=== PATIENT | male | born 2000 | race Caucasian/White ===

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

== ENCOUNTER 2018-07-15 19:20 | Emergency (ER) | payer OTHER ==
[2018-07-15 19:23] VITALS: BP 159/81; PULSE 101; RESP 16; TEMP 98.6
[2018-07-15] MEDS ORDERED: LIDOCAINE 1% INJ 10MG/ML (20 ML MDV) SQ ONE (19:28)
[2018-07-15] MEDS ORDERED: ACET/COD 300 MG/30 MG STARTER PACK 6 TAB BTL PO STA (19:32)
--- NOTE | 2018-07-15 19:33 | ED ---
Skin/Abscess/FB HPI - General Chief complaint: Skin/Abscess/Foreign Body Stated complaint: Cyst on tailbone Time Seen by Provider: 07/15/18 19:24 Source: patient, RN notes reviewed Mode of arrival: ambulatory Limitations: no limitations - History of Present Illness Initial comments: 17-year-old male present emergency department with chief complaint abscess on his tailbone. Patient states has been present for last 6 days. Patient states it has become too painful to tolerate. Patient reports no fevers or chills. Patient has had multiple of these in the past and has seen a surgeon for told that he just needs to lose weight. Patient denies any other complaints at this time. - Related Data Previous Rx's Medication Instructions Recorded Clindamycin [Cleocin] 450 mg PO TID 10 Days capsule 10/26/17 Clindamycin HCl 300 mg PO Q6HR #40 cap 07/15/18 Allergies Allergy/AdvReac Type Severity Reaction Status Date / Time bee pollen Allergy Swelling Verified 07/15/18 19:23 sulfamethoxazole Allergy Rash/Hives Verified 07/15/18 19:23 [From Bactrim] trimethoprim [From Bactrim] Allergy Rash/Hives Verified 07/15/18 19:23 venom-honey bee Allergy Anaphylaxis Verified 07/15/18 19:23 diphenhydramine AdvReac Confusion Verified 07/15/18 19:23 [From Benadryl] Review of Systems ROS Statement: Those systems with pertinent positive or pertinent negative responses have been documented in the HPI. ROS Other: All systems not noted in ROS Statement are negative. Past Medical History Past Medical History: No Reported History History of Any Multi-Drug Resistant Organisms: None Reported Past Surgical History: No Surgical Hx Reported Additional Past Surgical History / Comment(s): pilonidal cyst Past Psychological History: No Psychological Hx Reported Smoking Status: Never smoker Past Alcohol Use History: None Reported Past Drug Use History: None Reported General Exam Limitations: no limitations General appearance: alert, in no apparent distress Head exam: Present: atraumatic, normocephalic, normal inspection Respiratory exam: Present: normal lung sounds bilaterally. Absent: respiratory distress, wheezes, rales, rhonchi, stridor Cardiovascular Exam: Present: regular rate, normal rhythm, normal heart sounds. Absent: systolic murmur, diastolic murmur, rubs, gallop, clicks GI/Abdominal exam: Present: soft, normal bowel sounds. Absent: distended, tenderness, guarding, rebound, rigid Skin exam: Present: warm, dry, intact, normal color, other (At the cleft of the buttocks there is 2 cm abscess per minute and the right. Mild fluctuant mild erythema). Absent: rash Course Vital Signs 07/15/18 19:21 Temperature 98.6 F Pulse Rate 101 H Respiratory 16 Rate Blood Pressure 159/81 O2 Sat by Pulse 98 Oximetry Procedures - Incision & Drainage Consent Obtained: verbal consent Site: buttock (Abscess) Size (cm): 2 Anesthetic Used: lidocaine 1%, without epi Amount (mLs): 8 I&D Cleaning Method: Chloroprep Scalpel Used: #11 I&D Drainage Obtained: Pus, Blood Culture Obtained?: No Patient Tolerated Procedure: well, no complications Medical Decision Making - Medical Decision Making 17-year-old male presented for an abscess to his buttocks region. This was opened. Patient will be discharged on clindamycin. Patient will follow-up PCP and return for any worsening symptoms. Disposition Clinical Impression: Abscess of buttock Disposition: HOME SELF-CARE Condition: Stable Instructions (If sedation given, give patient instructions): Abscess Incision and Drainage (ED), Abscess (ED) Additional Instructions: Please return to the Emergency Department if symptoms worsen or any other concerns. Prescriptions: Clindamycin HCl 300 mg PO Q6HR #40 cap Is patient prescribed a controlled substance at d/c from ED?: No Referrals: Wojciech Reyna MD [Primary Care Provider] - 1-2 days Time of Disposition: 19:32
== END 2018-07-15 19:58 | disposition home or self-care (01) ==
LOC: EC 19:20
DX: L02.31 Cutaneous abscess of buttock (principal); Z88.1 Allergy status to other antibiotic agents; Z88.2 Allergy status to sulfonamides; Z88.8 Allergy status to other drugs, medicaments and biological substances; Z91.030 Bee allergy status
CPT/HCPCS: 99282; 10060; J2001

== ENCOUNTER 2018-12-17 10:01 | Emergency (ER) | payer OTHER ==
[2018-12-17 10:15] VITALS: BP 145/85; PULSE 91; RESP 16; TEMP 98.1
[2018-12-17] MEDS ORDERED: LIDOCAINE 1% INJ 10MG/ML (20 ML MDV) SQ ONE (10:26)
--- NOTE | 2018-12-17 10:33 | ED ---
Skin/Abscess/FB HPI - General Chief complaint: Skin/Abscess/Foreign Body Stated complaint: cyst on tailbone Time Seen by Provider: 12/17/18 10:17 Source: patient Mode of arrival: ambulatory Limitations: no limitations - History of Present Illness Initial comments: Patient is a 18-year-old male presenting to the emergency department with a abscess on his tailbone 5 days. Patient states he noticed it about 5 days ago but it has increase in pain and redness in the last 2-3 days. Patient states he has had these in the same spot before. Last one was a few months ago that was I&D. Patient states he has pain with sitting and standing. Patient denies any fever, chills. No other complaints at this time. Upon arrival, patient is resting comfortably on his stomach on the bed. - Related Data Previous Rx's Medication Instructions Recorded Amoxic-Pot Clav 875-125Mg 1 tab PO Q12HR 10 Days #20 tablet 12/17/18 [Augmentin 875-125] Amoxicillin/Potassium Clav 1 tab PO BID 3 Days #6 tab 12/17/18 [Augmentin 875-125 Tablet] Allergies Allergy/AdvReac Type Severity Reaction Status Date / Time bee pollen Allergy Swelling Verified 12/17/18 10:30 sulfamethoxazole Allergy Rash/Hives Verified 12/17/18 10:30 [From Bactrim] trimethoprim [From Bactrim] Allergy Rash/Hives Verified 12/17/18 10:30 venom-honey bee Allergy Anaphylaxis Verified 12/17/18 10:30 diphenhydramine AdvReac Confusion Verified 12/17/18 10:30 [From Benadryl] Review of Systems ROS Statement: Those systems with pertinent positive or pertinent negative responses have been documented in the HPI. ROS Other: All systems not noted in ROS Statement are negative. Past Medical History Past Medical History: No Reported History History of Any Multi-Drug Resistant Organisms: None Reported Past Surgical History: No Surgical Hx Reported Additional Past Surgical History / Comment(s): pilonidal cyst Past Psychological History: No Psychological Hx Reported Smoking Status: Never smoker Past Alcohol Use History: None Reported Past Drug Use History: None Reported General Exam - General Exam Comments Initial Comments: GENERAL: Well-appearing, well-nourished and in no acute distress. HEAD: Atraumatic, normocephalic. EYES: Pupils equal round and reactive to light, extraocular movements intact, sclera anicteric, conjunctiva are normal. ENT: Nares patent, oropharynx clear without exudates. Moist mucous membranes. NECK: Normal range of motion, supple without lymphadenopathy or JVD. LUNGS: Breath sounds clear to auscultation bilaterally and equal. No wheezes rales or rhonchi. HEART: Regular rate and rhythm without murmurs, rubs or gallops. ABDOMEN: Soft, nontender, normoactive bowel sounds. No guarding, no rebound. No masses appreciated. : Deferred EXTREMITIES: Normal range of motion, no pitting or edema. No clubbing or cyanosis. NEUROLOGICAL: Cranial nerves II through XII grossly intact. Normal speech, normal gait. PSYCH: Normal mood, normal affect. SKIN: Warm, Dry, normal turgor, no rashes. Patient has a pilonidal cyst on the right side tailbone. Area is erythematous, painful to the touch with some surrounding induration. Limitations: no limitations Course Vital Signs 12/17/18 10:13 Temperature 98.1 F Pulse Rate 91 Respiratory 16 Rate Blood Pressure 145/85 O2 Sat by Pulse 97 Oximetry Procedures - Incision & Drainage Consent Obtained: verbal consent Indication: pilondial abscess Site: buttock Size (cm): 2 Anesthetic Used: lidocaine 1% Amount (mLs): 3 I&D Cleaning Method: Chloroprep, Alcohol Wipe Sterile Field Used?: Yes Scalpel Used: #11 Needle Aspiration Performed?: No Irrigation Performed?: No I&D Drainage Obtained: Pus, Blood Culture Obtained?: No Patient Tolerated Procedure: well Medical Decision Making - Medical Decision Making Patient is a 18-year-old male presenting with a pilonidal abscess 5 days. Patient states pain has been increasing the last 2-3 days. Patient has history of similar abscesses. On exam patient has abscess on the right side the top of the buttocks and a small abscess on the left side. Vital signs are stable, afebrile. An I&D was performed on both sides. Patient tolerated procedure well. There is no packing needed. Patient will be placed on Augmentin. Patient will follow up with PCP if symptoms continue. Return parameters were discussed with the patient and he verbalized understanding. Patient is stable for discharge. Case discussed with Dr. Restrepo. Disposition Clinical Impression: Pilonidal cyst with abscess Disposition: HOME SELF-CARE Instructions (If sedation given, give patient instructions): Abscess Incision and Drainage (ED) Additional Instructions: Please return to the Emergency Department if symptoms worsen or any other concerns. Take antibiotic as prescribed. Follow up with PCP as needed. Prescriptions: Amoxic-Pot Clav 875-125Mg [Augmentin 875-125] 1 tab PO Q12HR 10 Days #20 tablet Amoxicillin/Potassium Clav [Augmentin 875-125 Tablet] 1 tab PO BID 3 Days #6 tab Is patient prescribed a controlled substance at d/c from ED?: No Referrals: Wojciech Reyna MD [Primary Care Provider] - 1-2 days
== END 2018-12-17 11:19 | disposition home or self-care (01) ==
LOC: EC 10:01
DX: L05.01 Pilonidal cyst with abscess (principal); Z88.2 Allergy status to sulfonamides; Z88.6 Allergy status to analgesic agent; Z91.030 Bee allergy status; Z87.2 Personal history of diseases of the skin and subcutaneous tissue; Z98.890 Other specified postprocedural states
CPT/HCPCS: 10080; 99282

== ENCOUNTER 2020-08-12 12:42 | Emergency (ER) | payer OTHER ==
[2020-08-12] MEDS ORDERED: LIDOCAINE 1% INJ 10MG/ML (20 ML MDV) SQ ONE (13:41)
[2020-08-12] MEDS ORDERED: CEPHALEXIN 500 MG CAP PO STA (13:42)
--- NOTE | 2020-08-12 14:15 | ED ---
Skin/Abscess/FB HPI - General Chief complaint: Skin/Abscess/Foreign Body Stated complaint: Cyst on tailbone Source: patient Mode of arrival: ambulatory Limitations: no limitations - History of Present Illness Initial comments: Patient is a 19-year-old male with past history of pilonidal cyst who presents emergency Department with reported swelling, pain and redness to his tailbone. Patient reports that he has had his Tylenol cyst drained multiple times due to abscess. He followed up with a surgeon several years ago reported that he was too young to have surgery. Patient has not followed up since. Denies history of MRSA. Reports that his pain and swelling has been going on for the past week. Denies any current drainage. Denies any issues with his bowels. No constipation, diarrhea, black or bloody stools. Denies any rectal pain. No fevers or chills. Denies any nausea or vomiting. No other alleviating, precipitating or modifying factors - Related Data Previous Rx's Medication Instructions Recorded Cephalexin [Keflex] 500 mg PO Q6HR #28 cap 08/12/20 Allergies Allergy/AdvReac Type Severity Reaction Status Date / Time bee pollen Allergy Swelling Verified 08/12/20 12:56 sulfamethoxazole Allergy Rash/Hives Verified 08/12/20 12:56 [From Bactrim] trimethoprim [From Bactrim] Allergy Rash/Hives Verified 08/12/20 12:56 venom-honey bee Allergy Anaphylaxis Verified 08/12/20 12:56 diphenhydramine AdvReac Confusion Verified 08/12/20 12:56 [From Benadryl] Review of Systems ROS Statement: Those systems with pertinent positive or pertinent negative responses have been documented in the HPI. ROS Other: All systems not noted in ROS Statement are negative. Past Medical History Past Medical History: No Reported History History of Any Multi-Drug Resistant Organisms: None Reported Past Surgical History: No Surgical Hx Reported Additional Past Surgical History / Comment(s): pilonidal cyst Past Psychological History: No Psychological Hx Reported Smoking Status: Never smoker Past Alcohol Use History: None Reported Past Drug Use History: None Reported General Exam Limitations: no limitations Course Vital Signs 08/12/20 08/12/20 12:50 14:20 Temperature 98.9 F 98.3 F Pulse Rate 97 68 Respiratory 18 20 Rate Blood Pressure 138/81 130/81 O2 Sat by Pulse 97 99 Oximetry Medical Decision Making - Medical Decision Making Upon arrival patient is placed into room 29. A thorough history and physical exam was performed. Patient does have an identifiable abscess over the right buttock near the gluteal cleft. There is some cellulitis that extends onto the left buttock. The patient is anesthetized using 5 mL of 1% lidocaine without epinephrine. The abscess begins draining on its own. I did use an 11 blade scalpel to carry the incision for approximately 1 cm and there is continued return of green, purulent drainage. Approximately 15 mL was released. She does have improvement in his symptoms. He was offered something for pain control however refused. Patient will be discharged home at this time on Keflex as he does deny a previous history of MRSA. Culture was taken. Patient will be called if antibiotics are inadequate. He is given multiple contacts for possible surgeons that may assist him with his sister mobile. He is instructed to follow up with his primary care doctor in 2-4 days. Return to the emergency room for any new or worsening symptoms. Patient was discharged home stable co ndition Disposition Clinical Impression: Pilonidal abscess, Cellulitis Disposition: HOME SELF-CARE Condition: Stable Instructions (If sedation given, give patient instructions): Pilonidal Cyst (ED), Abscess Incision and Drainage (DC) Additional Instructions: Please take the antibiotics as directed. Follow up with a surgeon for excision. Return to the emergency room for any new or worsening symptoms Prescriptions: Cephalexin [Keflex] 500 mg PO Q6HR #28 cap Is patient prescribed a controlled substance at d/c from ED?: No Referrals: Wojciech Reyna MD [Primary Care Provider] - 1-2 days Dwight Allison DO [Doctor of Osteopathic Medicine] - 1-2 days Radha Negrete MD [STAFF PHYSICIAN] - 1-2 days Time of Disposition: 14:15
[2020-08-12 14:27] VITALS: BP 130/81; PULSE 68; RESP 20; TEMP 98.3
== END 2020-08-12 14:20 | disposition home or self-care (01) ==
LOC: EC 12:42
DX: L05.01 Pilonidal cyst with abscess (principal); L03.317 Cellulitis of buttock
CPT/HCPCS: 87070; 87205; 99283; 10080; J2001

== ENCOUNTER 2024-12-03 22:03 | Emergency (ER) | payer SELFPAY ==
[2024-12-03 22:11] VITALS: RESP 18
--- NOTE | 2024-12-03 22:16 | ED ---
Back Pain HPI - General Chief Complaint: Back Pain/Injury Stated Complaint: back pain Time Seen by Provider: 12/03/24 22:12 Source: patient Limitations: no limitations - History of Present Illness Initial Comments: 23-year-old male present with chief complaint of lower back pain. He reports that earlier today he was trying to move a place that and got underneath that lifting it with his back and shoulders. He felt a pop in his lower back. He is now having pain on the right side lower back with radiation down the leg. No loss of bowel or bladder control or saddle paresthesia. Took Tylenol prior to arrival. - Related Data Previous Rx's Medication Instructions Recorded Cephalexin [Keflex] 500 mg PO Q6HR #28 cap 08/12/20 Cyclobenzaprine [Flexeril] 10 mg PO TID PRN #15 tab 12/03/24 Allergies Allergy/AdvReac Type Severity Reaction Status Date / Time bee pollen Allergy Swelling Verified 12/03/24 22:11 clindamycin Allergy Rash/Hives Verified 12/03/24 22:33 sulfamethoxazole Allergy Rash/Hives Verified 12/03/24 22:11 [From Bactrim] trimethoprim [From Bactrim] Allergy Rash/Hives Verified 12/03/24 22:11 venom-honey bee Allergy Anaphylaxis Verified 12/03/24 22:11 diphenhydramine AdvReac Confusion Verified 12/03/24 22:11 [From Benadryl] Review of Systems ROS Statement: Those systems with pertinent positive or pertinent negative responses have been documented in the HPI. ROS Other: All systems not noted in ROS Statement are negative. Past Medical History Past Medical History: No Reported History History of Any Multi-Drug Resistant Organisms: None Reported Past Surgical History: No Surgical Hx Reported Additional Past Surgical History / Comment(s): pilonidal cyst Past Psychological History: No Psychological Hx Reported Smoking Status: Current every day smoker Past Alcohol Use History: None Reported Past Drug Use History: None Reported General Exam Limitations: no limitations General appearance: alert, in no apparent distress Head exam: Present: atraumatic, normocephalic, normal inspection Eye exam: Present: normal appearance, EOMI Neck exam: Present: normal inspection. Absent: meningismus Respiratory exam: Absent: respiratory distress Cardiovascular Exam: Present: regular rate Back exam: Present: tenderness (Right sided paraspinal muscle tenderness, no midline or left-sided tenderness) Neurological exam: Present: alert, oriented X3 Psychiatric exam: Present: normal affect, normal mood Skin exam: Present: warm, dry, normal color Course Vital Signs 12/03/24 22:10 Temperature 98 F Pulse Rate 63 Respiratory 18 Rate Blood Pressure 138/83 O2 Sat by Pulse 99 Oximetry Medical Decision Making - Medical Decision Making Was pt. sent in by a medical professional or institution (, PA, [employer] E[employer]MENT OPERATOR, urgent care, hospital, or prison...) When possible be specific @ -No Did you speak to anyone other than the patient for history (EMS, parent, family, police, friend...)? What history was obtained from this source @ -No Did you review nursing and triage notes (agree or disagree)? Why? @ -I reviewed and agree with nursing and triage notes Were old charts reviewed (outside hosp., previous admission, EMS record, old EKG, old radiological studies, urgent care reports/EKG's, prison records)? Report findings @ -No old charts were reviewed Differential Diagnosis (chest pain, altered mental status, abdominal pain women, abdominal pain men, vaginal bleeding, weakness, fever, dyspnea, syncope, headache, dizziness, GI bleed, back pain, seizure, CVA, palpatations, mental health, musculoskeletal)? @ - MDM Differential Back Pain: Strain, zoster, cauda equina syndrome, epidural abscess, vertebral osteomyelitis, discitis, fracture, subluxation, disc herniation, DJD, spinal stenosis, dissection, AAA, pancreatitis, peptic ulcer disease, pyelonephritis, kidney stone… this is not meant to be an all-inclusive list. EKG interpreted by me (3pts min.). @ -As above X-rays interpreted by me (1pt min.). @ -None done CT interpreted by me (1pt min.). @ -None done U/S interpreted by me (1pt. min.). @ -None done What testing was considered but not performed or refused? (CT, X-rays, U/S, labs)? Why? @ -None What meds were considered but not given or refused? Why? @ -None Did you discuss the management of the patient with other professionals (professionals i.e. , [facility], [employer]IP[employer] OPERATOR, lab, RT, psych nurse, aids social worker, carpet sewer, teacher, employee service officer, residential case manager)? Give summary @ -No Was smoking cessation discussed for >3mins.? @ -No Was critical care preformed (if so, how long)? @ -No Were there social determinants of health that impacted care today? How? (Homelessness, low income, unemployed, alcoholism, drug addiction, transportation, low edu. Level, literacy, decrease access to med. care, fdc, rehab)? @ -No Was there de-escalation of care discussed even if they declined (Discuss DNR or withdrawal of care, Hospice)? DNR status @ -No What co-morbidities impacted this encounter? (DM, HTN, Smoking, COPD, CAD, Cancer, CVA, ARF, Chemo, Hep., AIDS, mental health diagnosis, sleep apnea, morbid obesity)? @ -None Was patient admitted / discharged? Hospital course, mention meds given and route, prescriptions, significant lab abnormalities, going to OR and other pertinent info. @ -23-year-old male presenting with chief complaint of lower back pain. Pain is on the right side with radiation down the right leg. No midline tenderness on examination. No red flag symptoms. Reports improvement after pain medication. Educated on today's findings and supportive management at home. Follow-up with PCP. Report back to ER with any new or worsening symptoms. Discussed return parameters and answered all questions. Patient conveyed verbal understanding and agreed to the plan. I discussed this case in detail with my attending Dr. Mckinnon Undiagnosed new problem with uncertain prognosis? @ -No Drug Therapy requiring intensive monitoring for toxicity (Heparin, Nitro, Insulin, Cardizem)? @ -No Were any procedures done? @ -No Diagnosis/symptom? @ -Lumbar strain Acute, or Chronic, or Acute on Chronic? @ -Acute Uncomplicated (without systemic symptoms) or Complicated (systemic symptoms)? @ -Uncomplicated Side effects of treatment? @ -No Exacerbation, Progression, or Severe Exacerbation? @ -No Poses a threat to life or bodily function? How? (Chest pain, [place], [place], pneumonia, PE, COPD, DKA, ARF, appy, cholecystitis, CVA, Diverticulitis, Homicidal, Suicidal, threat to staff... and all critical care pts) @ -Unlikely Disposition Clinical Impression: Strain of lumbar region Disposition: HOME SELF-CARE Condition: Good Instructions (If sedation given, give patient instructions): Acute Low Back Pain (ED) Additional Instructions: Follow-up with PCP. Report back to ER with any new or worsening symptoms. Do not take cyclobenzaprine before driving or operating heavy machinery as it may cause drowsiness Prescriptions: Cyclobenzaprine [Flexeril] 10 mg PO TID PRN #15 tab PRN Reason: Spasms Is patient prescribed a controlled substance at d/c from ED?: No Referrals: None,Stated [Primary Care Provider] - 1-2 days Time of Disposition: 23:40
[2024-12-03] MEDS: DEXAMETHASONE SOD PHOSPHATE 10 MG/ML 1 ML VIAL IM STA (22:27)
[2024-12-03] MEDS: ORPHENADRINE 30 MG/ML 2 ML VIAL IM STA (22:27)
[2024-12-03] MEDS: KETOROLAC 15 MG/ML 1 ML VIAL IM STA (22:27)
[2024-12-03] MEDS: LIDOCAINE 4% PATCH TOPICAL ONE (22:27)
[2024-12-03] MEDS: HYDROmorphone 0.5 MG/0.5 ML SYRINGE IM STA (23:00)
[2024-12-03 23:42] VITALS: BP 122/81; PULSE 71; TEMP 98.1
== END 2024-12-03 23:45 | disposition home or self-care (01) ==
LOC: EC 22:03
DX: S39.012A Strain of muscle, fascia and tendon of lower back, initial encounter (principal); F17.200 Nicotine dependence, unspecified, uncomplicated; Z88.2 Allergy status to sulfonamides; Z88.1 Allergy status to other antibiotic agents; Z88.8 Allergy status to other drugs, medicaments and biological substances; Z91.030 Bee allergy status; X50.0XXA Overexertion from strenuous movement or load, initial encounter
CPT/HCPCS: 99283; 96372; J1100; J2360; J1885; J1171